=== PATIENT | male | born 1955 | race Caucasian/White ===

== ENCOUNTER 2019-04-08 21:44 | Emergency (ER) | payer BC, MEDICAID ==
[~2019-04-08] VITALS: Ht 175.3 cm; Wt 85.3 kg
[2019-04-08 21:44] VITALS: BP 195/142
--- NOTE | 2019-04-08 21:50 | NUR ---
BIBA TO ER BED 11
--- NOTE | 2019-04-08 22:00 | NUR ---
64 Y/O FEMALE LASHAY, PRESENTS TO ED WITH CHIEF COMPLAINT OF DIZZINESS. PARAMEDICS RESPONDED ON SCENE WITH PT FEELING DIZZINESS AND DIFFICULTY WALKING. EKG NROURATE WAS NSR. PT DENIES ANY FALL OR TRAUMA. PT AAOX4. PT DENIES ANY DRUG OR ALCOHOL USE. PT MOOSE. SHERRY AWARE. WILL CONTINUE TO MONITOR. Addendum: 04/09/19 at 0027 by [email or web address] 64 Y/O MALE LASHAY, PRESENTS TO ED WITH CHIEF COMPLAINT OF DIZZINESS. PARAMEDICS RESPONDED ON SCENE WITH PT FEELING DIZZINESS AND DIFFICULTY WALKING. EKG NROURATE WAS NSR. PT DENIES ANY FALL OR TRAUMA. PT AAOX4. PT DENIES ANY DRUG OR ALCOHOL USE. PT VSS. POWELL AWARE. WILL CONTINUE TO MONITOR.
--- NOTE | 2019-04-08 23:08 | NUR ---
EKG PERFORMED AT BEDSIDE
[2019-04-08 23:21] LABS: BASOPHILS # (AUTO) 0.1 K/uL (0.00-0.22); BASOPHILS % (AUTO) 0.5 % (0.0-2.0); EOSINOPHILS % (AUTO) 0.3 % (0.0-4.0); HEMATOCRIT 38.6 % (36-52); HEMOGLOBIN 12.3 g/dL (12.0-18.0); LYMPHOCYTES # (AUTO) 0.5 K/uL (2.0-11.5); MEAN CORPUSCULAR HEMOGLOBIN 25 pg (27-31); MEAN CORPUSCULAR HGB CONC 32 g/dL (33-37); MEAN CORPUSCULAR VOLUME 79.8 fL (80-94); MONOCYTES # (AUTO) 0.7 K/uL (0.8-1.0); MONOCYTES % (AUTO) 6.9 % (1.7-9.3); NEUTROPHILS % (AUTO) 87.1 % (42.2-75.2); PLATELET COUNT (AUTO) 259 K/uL (140-450); RED BLOOD CELL COUNT(AUTO) 4.84 MIL/uL (4.20-6.10); RED CELL DISTRIBUTION WIDTH 14.1 % (11.6-13.7); WHITE BLOOD COUNT (AUTO) 10.4 K/uL (4.8-10.8)
[2019-04-08 23:35] LABS: ANION GAP 13.2 (8-16); CARBON DIOXIDE 27.6 mmol/L (21-32); CHLORIDE 106 mmol/L (98-107); CREATININE 1.9 mg/dL (0.7-1.3); GFR ARICAN-AMERICAN 46 mL/min (>90); GLUCOSE 165 mg/dL (74-106); POTASSIUM 3.8 mmol/L (3.5-5.1); SODIUM SERUM 143 mmol/L (136-145); UREA NITROGEN, BLOOD 24 mg/dL (7-18)
[2019-04-08 23:41] LABS: ALBUMIN 3.4 g/dL (3.4-5.0); ASPARTATE AMINOTRANSFERASE 32 U/L (15-37); LIPASE 176 U/L (73-393); TOTAL BILIRUBIN 0.7 mg/dL (0.0-1.0)
[2019-04-08 23:52] LABS: LYMPHOCYTES % (AUTO) 5.2 % (20.5-51.1)
[2019-04-08 23:59] LABS: CREATINE KINASE MB 2.1 ng/mL (0-3.6)
--- NOTE | 2019-04-09 00:21 | NUR ---
PT UNABLE TO PROVIDE URINE. TRIED 14 FR STRAIGHT CATH, PT REFUSED DURING PROCEDURE AND STATED, "I DON'T WANT TO DO THIS. IT HURTS." PT RESISTED. UNABLE TO COMPLETE PROCEDURE. ERMD AWARE. WILL CONTINUE TO MONITOR.
[2019-04-09 00:22] VITALS: BP 179/107
--- NOTE | 2019-04-09 01:45 | NUR ---
PT WANTS TO LEAVE AMA. PT SPOKE WITH SHERRY. EDUCATED PT REGARDING LEAVING AMA. PT VERBALIZED UNDERSTANDING OF TEACHING. TOLD PT WHEN TO RETURN TO ED. PT SIGNED AMA PAPERWORK.
== END 2019-04-09 01:45 | disposition left against medical advice (07) ==
LOC: MED 21:44
DX: S60.412A Abrasion of right middle finger, initial encounter (principal); R42 Dizziness and giddiness; I10 Essential (primary) hypertension; X58.XXXA Exposure to other specified factors, initial encounter; Y93.89 Activity, other specified; Y92.89 Other specified places as the place of occurrence of the external cause; Y99.8 Other external cause status
CPT/HCPCS: 36415; 70450; 71045; 80053; 82550; 82553; 83690; 84484; 85025; 99284; G0482; Q0092; 93005